=== PATIENT | male | born 1960 | race Caucasian/White ===

== ENCOUNTER 2017-07-12 13:20 | Emergency (ER) | payer MEDICAID, OTHER ==
[~2017-07-12] VITALS: Ht 165.1 cm; Wt 88.5 kg
[~2017-07-12 13:20] MED LIST: CYMBALTA; DEPRESSION MED; METHADONE; SERAQUIL
[2017-07-12 13:25] VITALS: Ht 165.1 cm; Wt 88.5 kg
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
[2017-07-12] MEDS ORDERED: IBUPROFEN 600 MG TAB PO ONE (15:30)
--- NOTE | 2017-07-12 16:41 | RADRPT ---
PROCEDURE: XR Lumbar Spine. CLINICAL INDICATION: Status post fall with low back pain TECHNIQUE: AP, cone-down lateral, and lateral views of the lumbar spine were obtained. COMPARISON: None. FINDINGS: Mineralization is within normal limits. Vertebral bodies are normal in height. No fracture is iden tified. Lumbar lordosis is preserved. No vertebral subluxation is seen. Degenerative disk narrowi ng is greatest at L5-S1 with moderate anterior spondylosis at every lumbar level. Severe bilateral facet arthropathy is present at L4-5 and L5-S1. There is moderate L3-4 facet degenerative change. Paraspinal contours are unremarkable. RPTAT:HJJR IMPRESSION: 1. No evidence of lumbar spine fracture or subluxation. 2. Moderate multilevel lumbar spondylosis. 3. Severe facet arthropathy at L4-5 and L5-S1 with disk narrowing greatest at L5-S1. Physician Libby Date Time Electronically viewed and signed by Physician Libby on 07/12/2017 16:41 /
--- NOTE | 2017-07-12 16:43 | RADRPT ---
PROCEDURE: XR Pelvis. CLINICAL INDICATION: Trauma. Pelvic pain following a fall TECHNIQUE: Single AP view of the pelvis. COMPARISON: No prior studies are available for comparison. FINDINGS: There are no fractures or dislocations. There are no arthritic, neoplastic or inflammatory changes. The osseous mineralization is normal. The sacroiliac joints and pubic symphysis are normal. RPTAT:HJJR IMPRESSION: Unremarkable single AP view of the pelvis. Physician Libby Date Time Electronically viewed and signed by Physician Libby on 07/12/2017 16:42 JR/
[2017-07-12] MEDS ORDERED: IBUP-1542 PO (16:56)
== END 2017-07-12 17:19 | disposition home or self-care (01) ==
LOC: FTE 13:20
DX: S33.5XXA Sprain of ligaments of lumbar spine, initial encounter (principal); W01.0XXA Fall on same level from slipping, tripping and stumbling without subsequent striking against object, initial encounter; Y92.9 Unspecified place or not applicable
CPT/HCPCS: 72100; 72170; Z7502; Z7610